=== PATIENT | female | born 1940 | race Caucasian/White ===

== ENCOUNTER 2017-03-22 08:00 | Inpatient (IN) | payer OTHER, BC ==
[2017-03-15 11:16] VITALS: BMI 29.5
--- NOTE | 2017-03-21 09:14 | HP ---
[facility] - Chief Complaint Chief Complaint: right knee pain - Past Medical History Allergies/Adverse Reactions: Allergies Allergy/AdvReac Type Severity Reaction Status Date / Time No Known Drug Allergies Allergy Verified 03/15/17 10:46 Cardiovascular: Yes: Hyperlipdemia - Current Medications Current Medications: Home Medications Medication Instructions Recorded Atorvastatin Ca [Lipitor] 10 mg PO HS 06/20/13 Omeprazole [Prilosec] 40 mg PO DAILY #30 capsule. 02/23/16 Ferrous Sulfate 325 mg PO DAILY 04/12/16 Aspirin Coated [Ecotrin -] 81 mg PO DAILY 03/15/17 Clonazepam [KlonoPIN] 0.5 mg PO HS 03/15/17 Levocetirizine Dihydrochloride 5 mg PO HS 03/15/17 [Xyzal] Meloxicam [Mobic] 7.5 mg PO ASDIR PRN 03/15/17 Meloxicam [Mobic] 15 mg PO ASDIR PRN 03/15/17 Metoprolol Succinate [Toprol Xl -] 50 mg PO DAILY 03/15/17 Tolterodine Tartrate LA [Detrol LA 4 mg PO HS 03/15/17 -] [facility]ellite Physical Exam - Physical Examination General Appearance: Well Nourished, Well Developed, Alert & Oriented x3 ENT: Clear Lung: Normal air movement Heart: Regular rate & rhythm Extremities: Other (right knee- + swelling, + ttp ,decr rom, nvi xrays show severe tricompartmental djd) Neurological: Intact, Alert, Oriented Satellite Impression/Plan - Impression/Plan Impression: right knee djd Operative Procedure: right yaritza tkr Date to be Performed: 03/22/17
[~2017-03-22 08:00] MED LIST: CEFAZOLIN 1 GM/D5W 50 ML IVPB ONE; CELECOXIB 200 MG CAPSULE PO ONE; GABAPENTIN 300 MG CAPSULE (FP) PO ONE; TRANEXAMIC ACID 1000 MG/10 ML VIAL IVPUSH ONE
[2017-03-22] MEDS ORDERED: GABAPENTIN 300 MG CAPSULE (FP) ONE (10:16)
[2017-03-22] MEDS ORDERED: CELECOXIB 200 MG CAPSULE ONE (10:17)
[2017-03-22] MEDS ORDERED: ROPIVACAINE HCL 0.5% 30ML VIAL ONE ×2 (13:11→13:30)
[2017-03-22] MEDS ORDERED: DEXAMETHASONE SOD PHOSPHATE/PF 10 MG/ML SDV ONE (13:11)
[2017-03-22] MEDS ORDERED: MIDAZOLAM HCL 2 MG/2 ML SINGLE DOSE VIAL ONE (13:11)
[2017-03-22] MEDS ORDERED: VANCOMYCIN 1,000 MG VIAL (RESTRICTED TO ID ONLY) ONE (13:49)
[2017-03-22] MEDS ORDERED: ceFAZolin SODIUM 1 GM VIAL ONE (13:49)
[2017-03-22] MEDS ORDERED: TRANEXAMIC ACID 1000 MG/10 ML VIAL ONE ×2 (14:37→15:14)
[2017-03-22] MEDS ORDERED: ePHEDrine SULFATE 50 MG/1 ML AMPULE ONE (14:39)
[2017-03-22] MEDS ORDERED: HYDROmorphone HCL CARPU-JECT 1 MG/1 ML DISP.SYRIN IVPUSH PRN (15:03)
[2017-03-22] MEDS ORDERED: ONDANSETRON 4 MG/2 ML VIAL IVPUSH PRN (15:03)
[2017-03-22] MEDS ORDERED: VANCOMYCIN 1,000 MG VIAL (RESTRICTED TO ID ONLY) IVPB ONE (15:06)
[2017-03-22] MEDS ORDERED: MAGNESIUM HYDROX 2400MG/30ML ORAL SUSPENSION 30 ML CUP PO PRN (16:20)
[2017-03-22] MEDS ORDERED: MAG HYDROX/AL HYDROX/SIMETH 30 ML UNIT-DOSE CUP PO PRN (16:20)
[2017-03-22] MEDS ORDERED: ONDANSETRON 4 MG/2 ML VIAL IVPB PRN (16:20)
--- NOTE | 2017-03-22 16:23 | OP ---
Operative Note - Note: Operative Date: 03/22/17 (boom) Pre-Operative Diagnosis: right knee djd Operation: right yaritza tkr Post-Operative Diagnosis: Same as Pre-op Surgeon: Alex Munoz Medical Authorization Specialist: Juanito Coats Anesthesia: Spinal, Local Specimens Removed: bone fragments Estimated Blood Loss (mls): 50 (tourniquet) Operative Report Dictated: Yes
[2017-03-22] MEDS ORDERED: LACTATED RINGERS SOLUTION 1,000 ML IV SCH (16:30)
[2017-03-22] MEDS ORDERED: oxyCODONE HCL 5 MG TABLET PO PRN (17:03)
[2017-03-22] MEDS: LACTATED RINGERS SOLUTION 1,000 ML IV SCH (18:08)
[2017-03-22] MEDS: oxyCODONE HCL 5 MG TABLET PO PRN ×2 (19:40→23:01)
[2017-03-22] MEDS: ATORVASTATIN CA 10 MG TABLET (FP) PO SCH (21:25)
[2017-03-22] MEDS: CEFAZOLIN 2 GM/D5W 50 ML IVPB SCH (21:25)
[2017-03-22] MEDS: clonazePAM 0.5 MG TABLET PO SCH (21:25)
[2017-03-22] MEDS: SENNOSIDES/DOCUSATE COMBO (SENNA PLUS) TABLET (UD) PO SCH (21:25)
[2017-03-22] MEDS: LORATADINE 10 MG TABLET PO SCH (21:25)
[2017-03-22] MEDS: TOLTERODINE TARTRATE LA 4 MG CAP.SR.24H (FP) PO SCH (22:04)
[2017-03-23] MEDS: oxyCODONE HCL 5 MG TABLET PO PRN ×3 (02:04→09:38)
[2017-03-23] MEDS: CEFAZOLIN 2 GM/D5W 50 ML IVPB SCH (05:51)
[2017-03-23] MEDS: ASPIRIN 325 MG TABLET PO SCH (07:55)
[2017-03-23 08:15] LABS: MCHC 33.7 g/dl (32.0-36.0); MEAN CELL VOLUME 91.7 fl (80-96); MEAN PLT VOLUME 7.6 fl (7.5-11.1); PLATELET COUNT 261 K/MM3 (134-434); RDW 13.5 % (11.6-15.6); WHITE BLOOD COUNT 10.2 K/mm3 (4.0-10.8)
[2017-03-23] MEDS: MULTIVITAMINS (DAILY MVI) TABLET (FP) PO SCH (09:37)
[2017-03-23] MEDS: FERROUS SO4 325 MG TABLET (FP) PO SCH (09:37)
[2017-03-23] MEDS: PANTOPRAZOLE 40 MG TABLET (FP) PO SCH (09:37)
[2017-03-23] MEDS: METOPROLOL SUCCINATE 50 MG TAB.SR.24H (FP) PO SCH (09:38)
[2017-03-23] MEDS: SENNOSIDES/DOCUSATE COMBO (SENNA PLUS) TABLET (UD) PO SCH ×2 (09:40→21:18)
--- NOTE | 2017-03-23 10:16 | PN ---
Progress Note (short form) - Note Progress Note: 76F POD1 s/p R TKR under spinal anesthetic with adductor canal and selective tibial blocks for post operative pain. Pain is well controlled, pt reports no anesthetic complications. Sensory and motor function intact in bilateral lower extremities.
--- NOTE | 2017-03-23 12:01 | PN ---
Progress Note (short form) - Note Progress Note: Ortho Pt seen and examined s/p right yaritza tkr pod #1 Selected Entries 03/23/17 06:00 Temperature 98.3 F Pulse Rate 65 Respiratory 19 Rate Blood Pressure 131/66 Laboratory Tests 03/23/17 07:00 WBC 10.2 Hgb 11.9 D Hct 35.1 Plt Count 261 Dressing c/d/i,calf soft, nt rom 0-40, nvi a/p PT dvt ppx pain control d/c home tomorrow if stable
--- NOTE | 2017-03-23 17:07 | SPEC ---
DATE OF SURGERY: 03/22/2017 OPERATION: Right total knee replacement with robotic-assisted navigation (MAKOplasty). PREOPERATIVE DIAGNOSIS: Degenerative joint disease, right knee. POSTOPERATIVE DIAGNOSIS: Degenerative joint disease, right knee. SURGEON: Alex Munoz M.D. MANAGER OF APPLICATION DEVELOPMENT: Taiwo Hightower ANESTHESIA: Regional and spinal. CLOSURE: A cemented Triathlon knee system with a 2 femur, a 3 tibia, 11 polyethylene, 32 patella. A number 1 Vicryl fascia, 0 and 2-0 for subcutaneous, 3-0 Monocryl subcuticular, with skin glue for skin, 4-0 undyed Vicryl for pin sites. ESTIMATED BLOOD LOSS: Negligible. TOURNIQUET TIME: Approximately 80 minutes. COMPLICATIONS: None. CONDITION: To recovery room in stable condition. DESCRIPTION OF PROCEDURE: Patient was taken to the operating room March 22, 2017. Regional and spinal anesthesia were administered by the anesthesiologist. IV antibiotics and TXA were administered prophylactically prior to the case. A well-padded pneumatic tourniquet was placed on the right proximal thigh. The right lower extremity was prepped and draped in the usual sterile fashion. An approximately 12-cm midline incision centered over the patella was incised. Hemostasis was achieved with Bovie cautery. Sharp dissection was carried down to the level of the extensor mechanism the procedure. A medial parapatellar arthrotomy was then performed. The patella was inverted and the knee was flexed up to 90 degrees. Subperiosteal dissection was performed on the anteromedial proximal tibia until the knee was able to be brought forward. This was facilitated by taking the ACL, the PCL, and the medial and lateral menisci. A checkpoint was malleted into the medial femoral condyle and into the anteromedial proximal tibia. Through 2two small stab incisions in the mid femur and 2two in the mid tibia, 2two bicortical pins were drilled, achieving excellent height. Two of these pins were attached to the navigation arrays. The knee was then registered with the navigation device by rotating the hip to ascertain the center of rotation of the hip with points on both the medial and lateral malleoli and multiple points on both the femur and on the tibia. Excellent registration was confirmed by "popping the bubbles.". At this time, the osteophytes on the edges of the proximal tibia both medially and laterally, as well as on the medial lateral femoral condyles underneath the collateral ligaments were debrided. The knee was stressed in extension and in flexion to confirm good gaps. The virtual positions of the components were then optimized in order to have a balanced knee, both in extension and in 90 degrees of flexion. The sizes of the components were also optimized to get good coverage over both the tibia and the femur and to produce equal gaps in extension and flexion with the appropriate amount of external rotation of the femur, the appropriate amount of flexion of the femoral component and the appropriate slope on the tibial component. At this time, the robot was brought into the field and registered. The robot was used to cut the proximal tibia and to make all the cuts on the distal femur. The bone was then removed. A spacer block in extension and flexion was used to confirm equal balancing of the component in both extension and 90 degrees of flexion. The box for the posterior cruciate sacrificing component was then performed and a trial component on the femur and tibia was applied. The femoral component was clipped into place with the appropriate external rotation. This was confirmed by the navigation device, ensuring the appropriate position of the tibial component on the proximal tibia. The patella was calipered for thickness and osteotomized at the appropriate level. A lollipop was used to drill the three lugholes in the patella and then a trial component was applied. The knee was taken through a range of motion and found to have excellent tracking of the patella from full extension to full flexion, with good stability, varus/valgus throughout range of motion. The trial components were then removed. Before removing the tibial tray, the keyhole was made. The knee was then thoroughly irrigated with antibiotic irrigation. The real components were then cemented in, using modern generation cement techniques with antibiotic cement and pressurization. After the cement was hardened, the knee was thoroughly inspected to remove all excess cement. The real polyethylene component was then clipped into place. Again, range of motion, stability and tracking were found to be excellent throughout. The knee was then pulse antibiotic irrigated and dried. Vancomycin powder was placed into the knee. The checkpoints were removed. The medial parapatellar arthrotomy was then closed using number 1 Vicryl interrupted suture. The knee was again taken through range of motion and found to have no undue tension on the repair and good tracking throughout. The subcutaneous was closed with 0 and 2-0 Vicryl and 3-0 Monocryl subcuticular for skin with skin glue. The pins were removed in the femur and the tibia and pulse antibiotic irrigated and closed with 4-0 undyed Vicryl. Sterile Aquacel dressing followed by a Hdz dressing was applied. The tourniquet was then deflated. One more dose of TXA was administered at the end of the case. The patient was awakened from anesthesia and transferred to the recovery room in stable condition. X-rays revealed good position of the components. There were no complications. Estimated blood loss was negligible. Total tourniquet time was approximately 80 minutes. Michael CUEVAS/[id number]
[2017-03-23] MEDS ORDERED: PT OWN MED DRAWER 7, Y5N ONE (21:06)
[2017-03-23] MEDS: ATORVASTATIN CA 10 MG TABLET (FP) PO SCH (21:18)
[2017-03-23] MEDS: LORATADINE 10 MG TABLET PO SCH (21:18)
[2017-03-23] MEDS: TOLTERODINE TARTRATE LA 4 MG CAP.SR.24H (FP) PO SCH (21:18)
[2017-03-23] MEDS: clonazePAM 0.5 MG TABLET PO SCH (21:18)
[2017-03-24] MEDS: oxyCODONE HCL 5 MG TABLET PO PRN ×2 (02:07→05:41)
[2017-03-24] MEDS ORDERED: ACETAMINOPHEN 325 MG TABLET (FP) ONE (05:23)
[2017-03-24] MEDS: ASPIRIN 325 MG TABLET PO SCH (08:39)
--- NOTE | 2017-03-24 08:51 | PN ---
Progress Note (short form) - Note Progress Note: Ortho Pt seen and examined s/p right yaritza tkr pod #2 Selected Entries 03/24/17 05:20 Temperature 98.8 F Pulse Rate 72 Respiratory 20 Rate Blood Pressure 138/54 Laboratory Tests 03/23/17 07:00 WBC 10.2 Hgb 11.9 D Hct 35.1 Plt Count 261 Dressing c/d/i,calf soft, nt rom 0-40, nvi a/p PT dvt ppx pain control d/c to snf tomorrow if stable
[2017-03-24 09:19] LABS: MCH 31.3 pg (25.7-33.7); MCHC 34.2 g/dl (32.0-36.0); MEAN CELL VOLUME 91.7 fl (80-96); MEAN PLT VOLUME 8.9 fl (7.5-11.1); PLATELET COUNT 234 K/MM3 (134-434); RDW 13.8 % (11.6-15.6)
[2017-03-24] MEDS: FERROUS SO4 325 MG TABLET (FP) PO SCH (10:15)
[2017-03-24] MEDS: PANTOPRAZOLE 40 MG TABLET (FP) PO SCH (10:16)
[2017-03-24] MEDS: MULTIVITAMINS (DAILY MVI) TABLET (FP) PO SCH (10:16)
[2017-03-24] MEDS: SENNOSIDES/DOCUSATE COMBO (SENNA PLUS) TABLET (UD) PO SCH ×2 (10:16→21:09)
[2017-03-24] MEDS: METOPROLOL SUCCINATE 50 MG TAB.SR.24H (FP) PO SCH (10:16)
--- NOTE | 2017-03-24 13:15 | PATH ---
Surgical Pathology Report Patient Name: ANJANA MA Med. Rec. #: [id number] /Age/Gender: 1940 (Age: 76) / F Account: [id number] Location: [facility] MED-SURG Taken: 03/23/2017 Received: 03/23/2017 Reported: 03/24/2017 Physicians: Alex Munoz M.D. Specimen(s) Received RIGHT KNEE BONE AND TISSUE Clinical History Osteoarthritis Final Diagnosis BONE AND SOFT TISSUE, RIGHT KNEE, REPLACEMENT: DEGENERATIVE JOINT DISEASE. Electronically Signed Guru Todd M.D. Gross Description Received in formalin labeled "right knee bone and tissue," is an 8.5 x 7.8 x 1.7 cm aggregate of multiple irregular portions of bone and soft tissue. There is a portion of tibial plateau present measuring 6.5 x 4.5 x 1.3 cm. There are no areas of eburnation identified. The articular surfaces are patterson-yellow and diffusely granular. The underlying trabecular bone is yellow and hard. Seamer Operator sections are submitted in one cassette, following decalcification. 03/23/2017 [facility]03/23/2017
[2017-03-24] MEDS ORDERED: PT OWN MED DRAWER 7, Y5N ONE (21:06)
[2017-03-24] MEDS: LORATADINE 10 MG TABLET PO SCH (21:09)
[2017-03-24] MEDS: ATORVASTATIN CA 10 MG TABLET (FP) PO SCH (21:09)
[2017-03-24] MEDS: clonazePAM 0.5 MG TABLET PO SCH (21:09)
[2017-03-24] MEDS: TOLTERODINE TARTRATE LA 4 MG CAP.SR.24H (FP) PO SCH (21:10)
[2017-03-25] MEDS: oxyCODONE HCL 5 MG TABLET PO PRN (00:33)
[2017-03-25 06:29] VITALS: BP 98/78; PULSE 72; TEMP 98.3
[2017-03-25] MEDS: ASPIRIN 325 MG TABLET PO SCH (08:37)
[2017-03-25] MEDS: MULTIVITAMINS (DAILY MVI) TABLET (FP) PO SCH (09:23)
[2017-03-25] MEDS: PANTOPRAZOLE 40 MG TABLET (FP) PO SCH (09:23)
[2017-03-25] MEDS: FERROUS SO4 325 MG TABLET (FP) PO SCH (09:23)
[2017-03-25] MEDS: SENNOSIDES/DOCUSATE COMBO (SENNA PLUS) TABLET (UD) PO SCH (09:23)
[2017-03-25] MEDS: METOPROLOL SUCCINATE 50 MG TAB.SR.24H (FP) PO SCH (09:24)
[2017-03-25] MEDS: LACTATED RINGERS SOLUTION 1,000 ML IV SCH (09:25)
--- NOTE | 2017-03-25 09:36 | PN ---
Progress Note (short form) - Note Progress Note: Ortho Pt seen and examined s/p right yaritza tkr pod #3 Selected Entries 03/25/17 06:00 Temperature 98.3 F Pulse Rate 72 Respiratory 19 Rate Blood Pressure 98/78 Laboratory Tests 03/24/17 07:00 WBC 9.0 Hgb 11.1 Hct 32.4 Plt Count 234 Dressing c/d/i,calf soft, nt rom 0-40, nvi a/p PT dvt ppx pain control d/c to snf today f/u in 1-2 weeks
--- NOTE | 2017-03-25 09:37 | DS ---
Physical Examination Vital Signs: Vital Signs Temperature 98.3 F 03/25/17 06:00 Pulse Rate 72 03/25/17 06:00 Respiratory Rate 19 03/25/17 06:00 Blood Pressure 98/78 03/25/17 06:00 O2 Sat by Pulse Oximetry (%) 96 03/25/17 06:00 Labs: CBC, BMP 03/24/17 07:00 Discharge Summary Reason For Visit: OSTEOARTHRITIS Procedures: Principal: s/p right yaritza tkr Hospital Course: admitted for elective right yaritza tkr, uneventful post-op, stable for d/c Condition: Good - Instructions Diet, Activity, Other Instructions: Post-op Instructions-Total Knee Replacement Call the office for a follow-up appointment in 1 week - [phone] Aspirin 325mg daily for 6 weeks. Pain medication was sent into your pharmacy. Apply Graduated Compression Stockings (TEDs) to both lower extremities- remove daily for hygiene ONLY Apply Sequential Compression Device (SCDs) to both Lower extremities remove for PT and hygiene ONLY Apply cold packs to affected area for 15 minutes every 2 hours. Physical Therapist will come to your home for the first 5 days. You will be set up with outpatient PT at your first post-operative visit. Patient may ambulate as tolerated-encourage self care (at least every 2-3 hours while awake) with walker or cane Maintain Aquacel (waterproof) dressing to operative wound (will be removed by surgeon at first office visit) Shower with Aquacel dressing in place-if Aquacel integrity compromised, remove and apply dry sterile dressing and notify Orthopedist. DO NOT SHOWER unless Orthopedists approves without Aquacel dressing CONTACT THE OFFICE FOR ANY CHANGE IN YOUR CONDITION (for example-fever greater than 102 degrees,excessive bleeding from operative site, purulent drainage, severe swelling or pain) GO TO THE EMERGENCY ROOM IF THERE IS A MEDICAL EMERGENCY Knee Precautions: * Keep a rolled towel under affected heel while in bed or chair (to keep knee in extension) * Keep affected leg elevated except during mealtimes * DO NOT PLACE PILLOW UNDER AFFECTED KNEE * If you have any questions, please do not hesitate to call the office - . Referrals: Alex Munoz MD [Staff Physician] - Disposition: ASSISTED FACILITY - Home Medications Comprehensive Discharge Medication List: Ambulatory Orders Atorvastatin Ca [Lipitor] 10 mg PO HS 12/18/13 Omeprazole [Prilosec] 40 mg PO DAILY #30 capsule. 02/23/16 Ferrous Sulfate 325 mg PO DAILY 04/12/16 Clonazepam [KlonoPIN] 0.5 mg PO HS 03/15/17 Levocetirizine Dihydrochloride [Xyzal] 5 mg PO HS 03/15/17 Meloxicam [Mobic] 15 mg PO ASDIR PRN 03/15/17 Metoprolol Succinate [Toprol XL -] 50 mg PO DAILY 03/15/17 Tolterodine Tartrate LA [Detrol LA -] 4 mg PO HS 03/15/17 Aspirin [ASA -] 325 mg PO DAILY@0800 tablet 03/22/17 Oxycodone HCl/Acetaminophen [Percocet 5-325 mg Tablet] 1 - 2 tab PO Q6H #50 tab MDD 8 03/22/17
== END 2017-03-25 12:08 | DRG 470 ==
LOC: FM/S 09:52
PROVIDERS: ADMIT Orthopaedic Surgery; ATTEND Orthopaedic Surgery
PROC: 8E0Y0CZ Robotic Assisted Procedure of Lower Extremity, Open Approach (ICD-10-PCS; 2017-03-22)
PROC: 0SRC0J9 Replacement of Right Knee Joint with Synthetic Substitute, Cemented, Open Approach (ICD-10-PCS; principal; 2017-03-22 14:18)
DX: M17.11 Unilateral primary osteoarthritis, right knee (principal); I10 Essential (primary) hypertension; E78.5 Hyperlipidemia, unspecified
CPT/HCPCS: 36415; 73560-TC-RT; 85027; 88304-TC; 88311-TC; 94760; 97116-GP; 97162-GP

== ENCOUNTER 2022-01-24 21:10 | Emergency (ER) | payer OTHER, BC ==
[2022-01-24 21:16] VITALS: BP 122/50; PULSE 63; RESP 18; TEMP 98.6; BMI 27.6
== END 2022-01-24 23:40 | disposition home or self-care (01) ==
LOC: JER 21:10
DX: S01.419A Laceration without foreign body of unspecified cheek and temporomandibular area, initial encounter (principal); W01.0XXA Fall on same level from slipping, tripping and stumbling without subsequent striking against object, initial encounter
CPT/HCPCS: 70450-TC; 70486-TC; 99284-25